=== PATIENT | female | born 1970 | race Caucasian/White ===

== ENCOUNTER → 2017-05-22 | Outpatient (CLI) | payer OTHER ==
--- NOTE | 2017-05-22 11:15 | US ---
EXAMINATION TYPE: US pelvis complete transvag DATE OF EXAM: 05/22/2017 COMPARISON: NONE CLINICAL HISTORY: Irregular menses N92.6. Irregular menses, 3 c-sections TECHNIQUE: Transvaginal (TV) and Transabdominal (TA) Date of LMP: 05/13/17 EXAM MEASUREMENTS: Uterus: 11.4 x 4.8 x 5.7 cm Endometrial Stripe: 0.4 cm Right Ovary: 3.5 x 2.0 x 1.5 cm Left Ovary: 2.8 x 1.3 x 2.6 cm 1. Uterus: Anteverted Heterogeneous with Nabothian cysts, probable fibroid right posterior body = 5.1 x 4.6 x 4.4cm 2. Endometrium: difficult to evaluate due to heterogenous myometrium 3. Right Ovary: dominant follicle = 1.9 x 1.4 x 1.7cm 4. Left Ovary: appears wnl 5. Bilateral Adnexa: appears wnl 6. Posterior cul-de-sac: wnl Heterogeneous prominent uterus is seen. Suspect poorly defined fibroids. Endometrium is not seen with certainty due to the marked heterogeneity. Several nabothian cysts are seen in the cervix. No free f luid is seen in pelvic cul-de-sac. Both ovaries are identified. Slightly prominent cystic lesions right ovary favor dominant follicles o r simple small ovarian cyst. IMPRESSION: Heterogeneous prominent uterus favors fibroid change. This can be confirmed with pelvic M RI if desired.
== END | disposition home or self-care (01) ==
LOC: RADUSWWP 10:04
PROVIDERS: ATTEND Obstetrics & Gynecology
DX: N85.8 Other specified noninflammatory disorders of uterus (principal); N92.6 Irregular menstruation, unspecified
CPT/HCPCS: 76830; 76856

== ENCOUNTER → 2019-06-17 | Outpatient (CLI) | payer OTHER ==
--- NOTE | 2019-06-18 08:51 | MM ---
Reason for exam: screening (asymptomatic). Last mammogram was performed 1 year and 2 months ago. History: Patient has history of other cancer at age 49. Benign excisional biopsy of the right breast, 2013. Physical Findings: A clinical breast exam by your physician is recommended on an annual basis and results should be correlated with mammographic findings. MG 3D Screening Mammo W/Cad Bilateral CC and MLO view(s) were taken. Prior study comparison: April 23, 2018, mammogram. April 18, 2017, mammogram. The breast tissue is heterogeneously dense. This may lower the sensitivity of mammography. There is a 3mm group of upper inner quadrant calcifications 5-6cm from nipple. No suspicious abnormality on the left breast. ASSESSMENT: Incomplete: need additional imaging evaluation, BI-RAD 0 RECOMMENDATION: Special view mammogram of the right breast. [facility] will attempt to contact patient to return for supplemental views.
== END | disposition home or self-care (01) ==
LOC: RADMAMWWP 09:18
PROVIDERS: ATTEND Obstetrics & Gynecology
DX: Z12.31 Encounter for screening mammogram for malignant neoplasm of breast (principal)
CPT/HCPCS: 77063; 77067

== ENCOUNTER → 2019-07-01 | Outpatient (CLI) | payer OTHER ==
--- NOTE | 2019-07-02 08:56 | MM ---
Reason for exam: additional evaluation requested from abnormal screening. Last mammogram was performed less than 1 month ago. History: Patient has history of other cancer at age 49. Family history of breast cancer in maternal cousin at age 49. Benign excisional biopsy of the right breast, 2013. Physical Findings: Nurse did not find any significant physical abnormalities on exam. MG 3D Work Up W/Cad RT CC with magnification, LM with magnification, and LM view(s) were taken of the right breast. Prior study comparison: June 17, 2019, bilateral MG 3d screening mammo w/cad. April 23, 2018, mammogram. The breast tissue is heterogeneously dense. This may lower the sensitivity of mammography. There is a 3mm upper inner quadrant calcifications 5-6cm from nipple that are new from the prior of 2017. These results were verbally communicated with the patient and result sheet given to the patient on 07/01/19. ASSESSMENT: Suspicious, BI-RAD 4 RECOMMENDATION: Stereotactic core biopsy of the right breast. Called Dr. Gauthier's office with mammographic findings and has scheduled an appointment for the patient for 07/30/19 at 10:[address] Milian. Biopsy scheduled for 07/15/19 at 2:20. PRELIMINARY REPORT CALLED AND FAXED TO DR. MILIAN ON 07/02/19.
== END | disposition home or self-care (01) ==
LOC: RADMAMWWP 13:41
PROVIDERS: ATTEND Obstetrics & Gynecology
DX: R92.8 Other abnormal and inconclusive findings on diagnostic imaging of breast (principal)
CPT/HCPCS: 77061; 77065

== ENCOUNTER → 2019-07-15 | Day surgery (SDC) | payer OTHER ==
[2019-07-15 13:18] VITALS: RESP 18; TEMP 98.6
[2019-07-15 15:34] VITALS: BP 137/82; PULSE 76
--- NOTE | 2019-07-15 15:45 | MM ---
Stereotactic Mammotome core biopsy right breast. HISTORY: Microcalcifications The microcalcifications in question within the right breast were targeted by the undersigned. Procedure was performed by the undersigned. Informed consent was obtained and all of the patients questions were answered. The standard sterile technique was utilized and appropriate local anesthesia was obtained with 1% lidocaine. Deep anesthesia was obtained with 1% lidocaine and epinephrine. Mammotome probe was advanced and multiple core samples were obtained and sent to pathology for interpretation. Microclip marker was deployed at the site of biopsy. Post procedural mammogram demonstrates appropriate deployment of radiopaque clip marker. The patient tolerated the procedure well and left the department in stable condition. Pathology results are pending. IMPRESSION: Successful stereotactic core biopsy right breast with pathology results pending. Pathology Results: Benign RIGHT BREAST, STEREOTACTIC CORE BIOPSY: Fibrocystic changes including columnar cell hyperplasia and mild usual type ductal hyperplasia with calcifications, fibrosis, cysts and apocrine metaplasia. Intraluminal calcium oxalate crystals are focally identified. Recommendation Follow up mammogram of the right breast in 6 months. BAMBI
== END ==
LOC: RADMAMWWP 12:59
PROVIDERS: ATTEND Surgery
DX: N60.31 Fibrosclerosis of right breast (principal); N60.81 Other benign mammary dysplasias of right breast
CPT/HCPCS: 88305; 19081; A4648; J2001

== ENCOUNTER → 2020-01-20 | Outpatient (CLI) | payer OTHER ==
--- NOTE | 2020-01-20 10:27 | MM ---
Reason for exam: follow-up at short interval from prior study. Last mammogram was performed 7 months ago. History: Patient has history of other cancer at age 49. Family history of breast cancer in maternal cousin at age 49. Benign MG stereo VAD BX RT of the right breast, July 15, 2019. Benign excisional biopsy of the right breast, 2013. Physical Findings: Nurse did not find any significant physical abnormalities on exam. MG 3D Diag Mammo W/Cad RT CC and MLO view(s) were taken of the right breast. Prior study comparison: July 01, 2019, right breast MG 3d work up w/cad RT. June 17, 2019, bilateral MG 3d screening mammo w/cad. The breast tissue is heterogeneously dense. This may lower the sensitivity of mammography. Previous mammotome biopsy in the right breast. These results were verbally communicated with the patient and result sheet given to the patient on 01/20/20. ASSESSMENT: Benign, BI-RAD 2 RECOMMENDATION: Return to routine screening mammogram schedule for both breasts. Back on schedule.
== END | disposition home or self-care (01) ==
LOC: RADMAMWWP 09:35
PROVIDERS: ATTEND Surgery
DX: R92.8 Other abnormal and inconclusive findings on diagnostic imaging of breast (principal)
CPT/HCPCS: 77061; 77065

== ENCOUNTER → 2020-08-17 | Outpatient (CLI) | payer OTHER ==
--- NOTE | 2020-08-19 10:14 | MM ---
Reason for exam: screening (asymptomatic). Last mammogram was performed 7 months ago. History: Patient has history of other cancer at age 49. Family history of breast cancer in maternal cousin at age 49. Benign MG stereo VAD BX RT of the right breast, July 15, 2019. Benign excisional biopsy of the right breast, 2013. Physical Findings: A clinical breast exam by your physician is recommended on an annual basis and results should be correlated with mammographic findings. MG 3D Screening Mammo W/Cad Bilateral CC and MLO view(s) were taken. Prior study comparison: January 20, 2020, right breast MG 3d diag mammo w/cad RT. July 01, 2019, right breast MG 3d work up w/cad RT. The breast tissue is heterogeneously dense. This may lower the sensitivity of mammography. Stable benign calcifications. There is no discrete abnormality. No significant changes when compared with prior studies. ASSESSMENT: Benign, BI-RAD 2 RECOMMENDATION: Routine screening mammogram of both breasts in 1 year.
== END | disposition home or self-care (01) ==
LOC: RADMAMWWP 09:43
PROVIDERS: ATTEND Obstetrics & Gynecology
DX: Z12.31 Encounter for screening mammogram for malignant neoplasm of breast (principal); Z80.3 Family history of malignant neoplasm of breast
CPT/HCPCS: 77063; 77067

== ENCOUNTER → 2021-09-04 | Outpatient (CLI) | payer OTHER ==
--- NOTE | 2021-09-04 09:36 | USB ---
Reason for exam: additional evaluation requested from abnormal screening. History: Patient has history of other cancer at age 49. Family history of breast cancer in sister and breast cancer in maternal cousin at age 49. Benign MG stereo VAD BX RT of the right breast, July 15, 2019. Benign excisional biopsy of the right breast, 2013. Physical Findings: A clinical breast exam by your physician is recommended on an annual basis and results should be correlated with mammographic findings. US Breast Workup Limited RT Right limited breast ultrasound including focal area of concern, retroareolar and axilla demonstrates duct ectasia at the posterior nipple. Right periareolar area, subareolar area and posterior nipple scanned. Results were given to the patient verbally at the time of the exam. ASSESSMENT: Benign, BI-RAD 2 RECOMMENDATION: Return to routine screening mammogram schedule for both breasts. Manage patient on a clinical basis.
== END | disposition home or self-care (01) ==
LOC: RADUSWWP 08:56
PROVIDERS: ATTEND Obstetrics & Gynecology
DX: R92.8 Other abnormal and inconclusive findings on diagnostic imaging of breast (principal); Z80.3 Family history of malignant neoplasm of breast

== ENCOUNTER → 2022-08-29 | Outpatient (CLI) | payer OTHER ==
--- NOTE | 2022-08-30 17:04 | MM ---
Reason for Exam: Screening (asymptomatic). Last screening mammogram was performed 12 month(s) ago. Patient History: Menarche at age 10. First Full-Term at age 21. Patient has history of breast feeding. 2013, Benign Excisional Biopsy on the right side. 07/15/2019, Benign Core Biopsy on the right side. Maternal cousin had breast cancer, age 49. Sister had breast cancer. Risk Values: [place] 5 year model risk: 3.4%. NCI Lifetime model risk: 24.4%. Prior Study Comparison: 01/20/2020 Right Diagnostic Mammogram, [facility]. 08/17/2020 Bilateral Screening Mammogram, [facility]. 08/23/2021 Bilateral Screening Mammogram, [facility]. Tissue Density: The breast tissue is heterogeneously dense. This may lower the sensitivity of mammography. Findings: Analyzed By CAD. Pattern appears symmetrical and stable. A few scattered punctate calcifications are present. Core markers are within the right breast No suspicious groups of microcalcifications, spiculated or lobular masses, architectural distortion or other secondary signs of malignancy are mammographically apparent. Overall Assessment: Benign, BI-RAD 2 Management: Screening Mammogram of both breasts in 1 year. A negative mammogram report should not preclude additional follow up of suspicious palpable abnormalities. Patient should continue monthly self breast exam. A clinical breast exam by your physician is recommended on an annual basis and results should be correlated with mammographic findings. Electronically signed and approved by: Yazan Seth DO
== END | disposition home or self-care (01) ==
LOC: RADMAMWWP 09:08
PROVIDERS: ATTEND Obstetrics & Gynecology
DX: Z12.31 Encounter for screening mammogram for malignant neoplasm of breast (principal); Z80.3 Family history of malignant neoplasm of breast; Z98.890 Other specified postprocedural states
CPT/HCPCS: 77063; 77067